=== PATIENT | female | born 1940 | race Caucasian/White ===

== ENCOUNTER 2018-03-15 22:10 | Emergency (ER) | payer MEDICARE, OTHER ==
[~2018-03-15] VITALS: Ht 157.5 cm; Wt 61.9 kg
[~2018-03-15 22:10] MED LIST: ALPR-623 PO; ASPI81TA52 PO; ATOR10TA PO; CITA-278 PO; LISI-600 PO; MIRT-92 PO; NICO-631 TD; PANT-47 PO; SPIR25TA5 PO; TEMA15CA PO
[2018-03-15] MEDS ORDERED: diph,pertuss (acell), tet (DTaP-PEDs)/PF 0.5ml syringe IMVAC ONE (22:50)
[2018-03-15] MEDS ORDERED: TETanus/Pertussis (Acell)/Diphther VAC/PF (Tdap-Adult) 0.5ml syringe IMVAC ONE (22:50)
[2018-03-15] MEDS ORDERED: AMOX-580 PO (23:15)
[2018-03-15 23:31] VITALS: BP 184/83
== END 2018-03-15 23:32 | disposition home or self-care (01) ==
LOC: ER 22:11
DX: S41.151A Open bite of right upper arm, initial encounter (principal); Z88.2 Allergy status to sulfonamides; Z88.1 Allergy status to other antibiotic agents; Z88.5 Allergy status to narcotic agent; Z79.82 Long term (current) use of aspirin; Z79.899 Other long term (current) drug therapy; W54.0XXA Bitten by dog, initial encounter; Y93.89 Activity, other specified; Y92.89 Other specified places as the place of occurrence of the external cause; Y99.8 Other external cause status
CPT/HCPCS: 90471; 90715; 99284; A6449